=== PATIENT | male | born 1950 | race Caucasian/White ===

== ENCOUNTER 2017-01-21 18:22 | Emergency (ER) | payer MEDICARE, MEDICAID ==
[~2017-01-21] VITALS: Ht 172.7 cm; Wt 81.6 kg
[2017-01-21] VITALS (9 sets, daily range): BP systolic 107–126; BP diastolic 65–84
[2017-01-21] MEDS: Nitroglycerin Subl 0.4mg tab (Bottle Of 25) SL PRN ×3 (19:02→19:17)
[2017-01-21 19:10] LABS: BASOPHILS % (AUTO) 0.9 % (0.0-2.0); EOSINOPHILS % (AUTO) 1.5 % (0.0-3.0); LYMPHOCYTES % (AUTO) 28.2 % (20.0-45.0); MEAN CORPUSCULAR HEMOGLOBIN 30.5 PG (27.0-31.0); MEAN CORPUSCULAR HGB CONC 35.1 G/DL (32.0-36.0); MEAN CORPUSCULAR VOLUME 87 FL (80-99); MONOCYTES % (AUTO) 7.6 % (1.0-10.0); NEUTROPHILS % (AUTO) 61.8 % (45.0-75.0); PLATELET COUNT 228 K/UL (150-450); RED BLOOD COUNT 4.85 M/UL (4.70-6.10); RED CELL DISTRIBUTION WIDTH 12.3 % (11.6-14.8); WHITE BLOOD COUNT 7.4 K/UL (4.8-10.8)
[2017-01-21 19:15] LABS: TROPONIN I < 0.30 ng/mL (<=0.30)
[2017-01-21 19:16] LABS: ALANINE AMINOTRANSFERASE 15 U/L (3-41); ALBUMIN/GLOBULIN RATIO 1.7 (1.0-2.7); ANION GAP 15 (5-15); ASPARTATE AMINO TRANSFERASE 14 U/L (5-40); CALCIUM 9.3 mg/dL (8.6-10.2); CARBON DIOXIDE 27 mEQ/L (20-30); CHLORIDE 100 mEQ/L (98-107); CHOLESTEROL 83 mg/dL (< 200); CREATININE 0.9 mg/dL (0.7-1.2); GLOMERULAR FILTRATION RATE > 60 mL/min (>60); HEMOLYSIS 5; LDL CHOLESTEROL (CALC.) 33 mg/dL (60-99); POTASSIUM 3.8 mEQ/L (3.4-4.9); PROTHROMBIN TIME 10.6 SEC (9.30-11.50); SODIUM 142 mEQ/L (135-145); TOTAL PROTEIN 6.5 g/dL (6.6-8.7)
[2017-01-21] MEDS ORDERED: BRILINTA90 MG PO (19:16)
[2017-01-21] MEDS ORDERED: LANTUS SOL100 UNIT/1 SUBQ (19:16)
[2017-01-21] MEDS ORDERED: HUMALOG100 UNIT/4 SUBQ (19:16)
[2017-01-21] MEDS ORDERED: ASPIR 8181 MG ORAL (19:16)
[2017-01-21] MEDS ORDERED: ATORVASTATIN CA10 MG ORAL (19:16)
[2017-01-21] MEDS ORDERED: JANUMET 50-1,01 EACH ORAL (19:16)
[2017-01-21] MEDS ORDERED: FLOMAX0.4 MG ORAL (19:16)
[2017-01-21] MEDS ORDERED: LISINOPRIL2.5 MG ORAL (19:16)
[2017-01-21 19:26] LABS: CKMB 2.7 ng/mL (< 6.7)
[2017-01-21] MEDS ORDERED: Morphine Sulfate 4mg/ml Inj IVP ONE ×2 (19:45→21:00)
[2017-01-21] MEDS ORDERED: WATER STERILE IV ONE ×2 (20:00)
[2017-01-21] MEDS ORDERED: ALTEPLASE IV ONE ×2 (20:00)
--- NOTE | 2017-01-21 21:52 | Emergency Room Report ---
History of Present Illness General Chief Complaint: Chest Pain Source: Patient Present Illness HPI 66-year-old male presents to ED complaining of chest pain. States chest pain started approximately 30 minutes prior to arrival. Pain is midsternal, pressure -like, 8/10, nonradiating. Patient is also complaining of right arm weakness and right leg weakness. Which also started at the same time. Patient denies any slurred speech or facial droop. Patient states he was recently discharged from [facility] after treatment for NE. Had stent placement. Denies smoking or drug use. Denies fevers or chills. No other aggravating relieving factors. Denies any other associated symptoms Allergies: Coded Allergies: No Known Allergies (Verified Allergy, Mild, 11/28/06) Patient History Past Medical History: DM, HTN, NE, CAD Past Surgical History: none Pertinent Family History: none Social History: Denies: alcohol use, drug use, smoking Immunizations: UTD Reviewed Nursing Documentation: PMH: Agreed, PSxH: Agreed Nursing Documentation-PMH Past Medical History: No History, Except For Hx Cardiac Problems: Yes - 4 STENTS, HIGH CHOLESTEROL Hx Hypertension: Yes Hx Diabetes: Yes Review of Systems All Other Systems: negative except mentioned in HPI Physical Exam Vital Signs Date Time Temp Pulse Resp B/P Pulse Ox O2 Delivery O2 Flow Rate FiO2 01/21/17 18:27 97.3 88 17 119/81 100 Room Air Sp02 EP Interpretation: reviewed, normal General Appearance: no apparent distress, alert, GCS 15, non-toxic Head: normocephalic Eyes: bilateral eye PERRL, bilateral eye normal inspection ENT: normal ENT inspection Neck: normal inspection Respiratory: chest non-tender, lungs clear, normal breath sounds, speaking full sentences Cardiovascular #1: regular rate, rhythm, no edema Gastrointestinal: normal bowel sounds, non tender, soft, non-distended, no guarding, no rebound Rectal: deferred Genitourinary: no CVA tenderness Musculoskeletal: normal inspection Neurologic: alert, oriented x3, responsive, mis director III-XII nml as tested, sensory intact, speech normal, sensory deficit - mild sensory deficit in RUE and RLE, other - R arm motor strength 4/5, R leg motor strength 3/5 Psychiatric: judgement/insight normal, memory normal, mood/affect normal, no suicidal/homicidal ideation Skin: normal inspection Lymphatic: normal inspection Procedures Critical Care Time Critical Care Time i. I feel this is a highly complex case requiring extensive working including EKG/Rhythm strip, Xray/CT/US, Blood/urine lab work, repeat exams while in ED, and administration of strong opiates/narcotics for pain control, admission to hospital or close patient follow up. Total time: 30 min bedside evaluation and treatment excludes procedures (EKG). Reason for critical care: Chest pain, history of NE and stents. Stroke Possible complications: hypotension, hypertension, NE, shock, arrhythmias, metabolic acidosis, end organ damage, respiratory failure. Interventions: Labs, EKG, chest x-ray, CT head. Nitroglycerin. IV fluids. Morphine. Discussion with neurologist at [facility]. TPA Course: Patient came in for chest pain. Recently discharged from [facility] after stent placement for NE. Patient also having noticeable right arm and right leg weakness. CT head okay. Labs obtained. EKG shows no acute changes. Case discussed with neurology at [facility]. Patient candidate for TPA and TPA will be given. Patient will be transferred [facility] Consultations: nursing staff, EMS, family Performed by: Dr Rosado Tolerated well condition = critical j. because of unstable vital signs this patient had a condition that could potentially threaten life or limb. I feel this is a critical patient who required my full attention while patient was considered critical. Total Critical Care Time excluding procedures was greater than 35 minutes Medical Decision Making Diagnostic Impression: Primary Impression: CVA (cerebral vascular accident) Qualified Codes: I63.9 - Cerebral infarction, unspecified Additional Impression: ACS (acute coronary syndrome) ER Course Hospital Course 66-year-old male presents ED complaining of chest pain. History of NE and stent placement. Complaining of right arm and right leg weakness with tingling Differential diagnoses include: NE/unstable angina, SVT/Vtach/AFib, CVA/TIA Clinical course Patient placed on stretcher. on child monitor. After initial history and physical I ordered labs, EKG, chest x-ray, and CT head labs reviewed- electrolytes ok, troponins negative, no leukocytosis, Hb/Hct stable EKG - NSR, no acute changes Chest x-ray- no acute process CT brain - no acute process noted NIH stroke scale of 4. Patient is within window for TPA. Discussed case with neurology at [facility]. While patient had recent NE this not a contraindication to TPA as per neurologist Dr Mali Gaffney Patient given TPA bolus and TPA drip. Patient will be transferred to [facility] I. I feel this is a highly complex case requiring extensive working including EKG/Rhythm strip, Xray/CT/US, Blood/urine lab work, repeat exams while in ED, and administration of strong opiates/narcotics for pain control, admission to hospital or close patient follow up. Diagnosis - CVA, ACS Transferred in critical ondition Labs Test 01/21/17 18:46 White Blood Count 7.4 K/UL (4.8-10.8) Red Blood Count 4.85 M/UL (4.70-6.10) Hemoglobin 14.8 G/DL (14.2-18.0) Hematocrit 42.3 % (42.0-52.0) Mean Corpuscular Volume 87 FL (80-99) Mean Corpuscular Hemoglobin 30.5 PG (27.0-31.0) Mean Corpuscular Hemoglobin Concent 35.1 G/DL (32.0-36.0) Red Cell Distribution Width 12.3 % (11.6-14.8) Platelet Count 228 K/UL (150-450) Mean Platelet Volume 6.0 FL (6.5-10.1) Neutrophils (%) (Auto) 61.8 % (45.0-75.0) Lymphocytes (%) (Auto) 28.2 % (20.0-45.0) Monocytes (%) (Auto) 7.6 % (1.0-10.0) Eosinophils (%) (Auto) 1.5 % (0.0-3.0) Basophils (%) (Auto) 0.9 % (0.0-2.0) Prothrombin Time 10.6 SEC (9.30-11.50) Prothromb Time International Ratio 1.0 (0.9-1.1) Activated Partial Thromboplast Time 25 SEC (23-33) Sodium Level 142 mEQ/L (135-145) Potassium Level 3.8 mEQ/L (3.4-4.9) Chloride Level 100 mEQ/L (98-107) Carbon Dioxide Level 27 mEQ/L (20-30) Anion Gap 15 (5-15) Blood Urea Nitrogen 8 mg/dL (7-23) Creatinine 0.9 mg/dL (0.7-1.2) Estimat Glomerular Filtration Rate > 60 mL/min (>60) Glucose Level 102 mg/dL (74-106) Calcium Level 9.3 mg/dL (8.6-10.2) Total Bilirubin 0.5 mg/dL (0.0-1.2) Aspartate Amino Transf (AST/SGOT) 14 U/L (5-40) Alanine Aminotransferase (ALT/SGPT) 15 U/L (3-41) Alkaline Phosphatase 87 U/L (40-129) Total Creatine Kinase 97 U/L (38-174) Creatine Kinase MB 2.7 ng/mL (< 6.7) Creatine Kinase MB Relative Index 2.7 Troponin I < 0.30 ng/mL (<=0.30) Total Protein 6.5 g/dL (6.6-8.7) Albumin 4.1 g/dL (3.5-5.2) Globulin 2.4 g/dL Albumin/Globulin Ratio 1.7 (1.0-2.7) Triglycerides Level 43 mg/dL (< 150) Cholesterol Level 83 mg/dL (< 200) LDL Cholesterol 33 mg/dL (60-99) HDL Cholesterol 41 mg/dL (> 60) Cholesterol/HDL Ratio 2.0 (3.3-4.4) EKG Diagnostic Results Rate: normal Rhythm: NSR ST Segments: no acute changes ASA given to the pt in ED: No - patient given tpa Rhythm Strip Diag. Results EP Interpretation: yes Rhythm: NSR, no PVC's, no ectopy Chest X-Ray Diagnostic Results EP Interpretation: Yes Findings: no consolidation, no effusion, no pneumothorax, no acute cardiopulmonary disease Number of Views: 1 CT/MRI/US Diagnostic Results CT/MRI/US Diagnostic Results : Imaging Test Ordered: CT Head Impression no acute process identified Last Vital Signs Date Time Temp Pulse Resp B/P Pulse Ox O2 Delivery O2 Flow Rate FiO2 01/21/17 21:10 98.2 74 18 126/84 100 Room Air Status: improved Disposition: XFER SHT-TRM HOSP Condition: Critical Referrals: NON PHYSICIAN (PCP) TINA ROSADO M.D. Jan 21, 2017 21:52
--- NOTE | 2017-01-22 09:43 | Diagnostic Imaging Report ---
Indications: Chest pain Technique: Portable AP chest Findings: Comparison: 12/18/2011, 01/04/08 Cardiac silhouette remains normal in size. Pulmonary vasculature remains within normal limits. Lungs and pleura remain clear. Mild calcification of the aortic arch, mixed lucent and sclerotic masses within/emanating from the left scapula, possible similar smaller lesion right scapula, thoracic vertebral osteophytes unchanged. There is currently suggestion of an old, healed fracture of the posterior lateral aspect of the right seventh rib.. IMPRESSION: No evidence of acute disease, unchanged Stable chronic changes as described. This includes left scapular region masses which are not optimally evaluated by grossly unchanged, therefore likely benign. Osteochondromas must be considered. Elective CT scan of the left shoulder recommended for further evaluation.
--- NOTE | 2017-01-22 09:56 | Diagnostic Imaging Report ---
Indications: Altered mental status Technique: Continuous helical CT imaging of the brain was performed with automatic exposure control on a Siemens sensation [address] scanner. Axial and coronal images were reconstructed at 5 mm slice thickness and interval. CTDI volume(s): 70 mGy Total DLP: 1390 mGy-cm Findings: Comparison: 01/04/2008 Diffuse prominence of ventricles, cisterns, sulci has mildly increased. 2 cm calcified/ossified mass has developed in the left frontal sinus.. No evidence of mass or hemorrhage, other attenuation abnormality, mass effect, midline shift, hydrocephalus or increased intracranial pressure. Bone window images remain otherwise unremarkable. Visualized paranasal sinuses and mastoid air cells remain otherwise clear. IMPRESSION: No evidence of acute intracranial pathology, unchanged. Early/subtle acute abnormalities may be missed, however. If clinically indicated, MRI of the brain without and with gadolinium may be of benefit in further evaluation Mild progression of atrophy Development of 2 cm calcified/ossified mass in left frontal sinus, nonspecific. Diagnostic possibilities include osteoma, osteochondroma, metastasis. Further evaluation warranted. This correlates with Dr. Kelly's preliminary report. The CT scanner at [facility] is accredited by the [employer] and the scans are performed using protocols designed to limit radiation exposure to as low as reasonably achievable to attain images of sufficient resolution adequate for diagnostic evaluation.
== END 2017-01-21 21:15 | disposition short-term general hospital (02) ==
LOC: EMR 19:20
DX: I63.9 Cerebral infarction, unspecified (principal); I24.9 Acute ischemic heart disease, unspecified; I10 Essential (primary) hypertension; E11.9 Type 2 diabetes mellitus without complications; I25.2 Old myocardial infarction; Z95.5 Presence of coronary angioplasty implant and graft; R53.1 Weakness
CPT/HCPCS: 36415; 70450; 71010; 80053; 80061; 82550; 82553; 82962; 84484; 85025; 85610; 85730; 93005; 96374; 96375; 99291; J2270; J2997; J7040; 96372; A4216

== ENCOUNTER 2017-04-12 15:01 | Emergency (ER) | payer MEDICARE, MEDICAID ==
[~2017-04-12] VITALS: Ht 172.7 cm; Wt 80.7 kg
[~2017-04-12 15:01] MED LIST: ASPIR 8181 MG ORAL; ATORVASTATIN CA10 MG ORAL; BRILINTA90 MG PO; FLOMAX0.4 MG ORAL; HUMALOG100 UNIT/4 SUBQ; JANUMET 50-1,01 EACH ORAL; LANTUS SOL100 UNIT/1 SUBQ; LISINOPRIL2.5 MG ORAL
[2017-04-12] MEDS ORDERED: HUMALOG100 UNIT/4 SUBQ (16:05)
[2017-04-12] MEDS ORDERED: LANTUS SOL100 UNIT/1 SUBQ (16:05)
[2017-04-12] MEDS ORDERED: Morphine Sulfate 4mg/ml Inj IM ONE ×2 (17:00→17:45)
[2017-04-12 17:28] VITALS: BP 116/71
[2017-04-12 18:07] VITALS: BP 116/71
--- NOTE | 2017-04-13 17:42 | Emergency Room Report ---
History of Present Illness General Chief Complaint: Pain Source: Patient Present Illness HPI 67-year-old male presents ED complaining of left leg pain. Notes having pain for many years. Has history of chronic back and leg pain. States he has tried multiple medications by his PMD without significant relief. Pain is a 10 out of 10, sharp, radiating down the left leg. Patient is able to bear weight. No other aggravating or relieving factors. Denies any other associated symptom Allergies: Coded Allergies: No Known Allergies (Verified Allergy, Mild, 11/28/06) Patient History Past Medical History: DM, [place], CAD, GERD Past Surgical History: none Pertinent Family History: none Social History: Denies: alcohol use, drug use, smoking Immunizations: UTD Reviewed Nursing Documentation: PMH: Agreed, PSxH: Agreed Nursing Documentation-PMH Hx Cardiac Problems: Yes - [place]; stents; cardiac arrrest x2; high cholesterol Hx Hypertension: Yes Hx Diabetes: Yes Hx Gastrointestinal Problems: Yes - reflux Review of Systems All Other Systems: negative except mentioned in HPI Physical Exam Vital Signs Date Time Temp Pulse Resp B/P Pulse Ox O2 Delivery O2 Flow Rate FiO2 04/12/17 15:57 98.1 16 116/71 98 Room Air 04/12/17 17:28 74 Sp02 EP Interpretation: reviewed, normal General Appearance: no apparent distress, alert, GCS 15, non-toxic Head: normocephalic Eyes: bilateral eye PERRL, bilateral eye normal inspection ENT: normal ENT inspection Neck: normal inspection Respiratory: normal inspection Cardiovascular #1: normal inspection Gastrointestinal: normal inspection Rectal: deferred Genitourinary: no CVA tenderness Musculoskeletal: back normal, gait/station normal, normal range of motion, non- tender Neurologic: alert, oriented x3, responsive, motor strength/tone normal, sensory intact, speech normal Psychiatric: judgement/insight normal, memory normal, mood/affect normal, no suicidal/homicidal ideation Skin: normal inspection Lymphatic: normal inspection Medical Decision Making Diagnostic Impression: Primary Impression: Back pain Qualified Codes: M54.42 - Lumbago with sciatica, left side; G89.29 - Other chronic pain ER Course Hospital Course 67-year-old male presents ED complaining of lower back pain, radiating down left leg. No evidence of trauma Differential diagnoses include: pyelonephritis, kidney stone, muscle strain, Lspine fracture Clinical course Patient placed on stretcher. After initial history and physical I ordered pain medications. Upon reassessment patient states pain has improved. Patient has pain medications at home and will not recieve any prescriptions here Diagnosis - back pain Stable and discharged to home. Followup with PMD. Return to ED if symptoms recur or worsen Last Vital Signs Date Time Temp Pulse Resp B/P Pulse Ox O2 Delivery O2 Flow Rate FiO2 04/12/17 18:07 98.1 74 16 116/71 98 Room Air Status: improved Disposition: HOME, SELF-CARE Condition: Stable Patient Instructions: Chronic Pain TINA SIMPSON M.D. Apr 13, 2017 17:42
== END 2017-04-12 18:08 | disposition home or self-care (01) ==
LOC: EMR 16:05
DX: M54.42 Lumbago with sciatica, left side (principal); G89.29 Other chronic pain; K21.9 Gastro-esophageal reflux disease without esophagitis; E11.9 Type 2 diabetes mellitus without complications; I10 Essential (primary) hypertension; I25.2 Old myocardial infarction; Z95.5 Presence of coronary angioplasty implant and graft; E78.00 Pure hypercholesterolemia, unspecified; I25.10 Atherosclerotic heart disease of native coronary artery without angina pectoris
CPT/HCPCS: 96372; 99283; J2270